=== PATIENT | female | born 2000 | race Two or more races ===

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

== ENCOUNTER 2021-04-12 08:00 | Outpatient (CLI) | payer OTHER ==
[2021-04-12 21:27] LABS: RAPID STREP SCREEN Negative (Negative)
== END 2021-04-12 23:59 | disposition home or self-care (01) ==
LOC: LAB.N 08:00
PROVIDERS: ATTEND Family Medicine
DX: R05.1 Acute cough (principal); R07.0 Pain in throat; Z20.822 Contact with and (suspected) exposure to COVID-19
CPT/HCPCS: 87070; 87430